=== PATIENT | male | born 1975 | race African-American/Black ===

== ENCOUNTER 2025-03-12 17:39 | Emergency (ER) | payer MEDICAID ==
[~2025-03-12] VITALS: Ht 177.8 cm; Wt 63.0 kg
[2025-03-12 18:13] VITALS: O2SAT 100
[2025-03-12] MEDS: ACETAMINOPHEN 325MG TABLET PO ONE (19:03)
[2025-03-12 21:11] VITALS: BP 109/70; PULSE 63; RESP 14; TEMP 36.9; O2SAT 100
== END 2025-03-12 21:11 | disposition home or self-care (01) ==
LOC: ER 17:39
DX: R51.9 Headache, unspecified (principal); E05.90 Thyrotoxicosis, unspecified without thyrotoxic crisis or storm; I10 Essential (primary) hypertension
CPT/HCPCS: 99284